=== PATIENT | male | born 1960 | race Caucasian/White ===

== ENCOUNTER 2022-03-03 11:48 | Outpatient (CLI) | payer OTHER ==
--- NOTE | 2022-03-03 14:58 | Ultrasound Report ---
PROCEDURE: Bladder ultrasound INDICATIONS: Increased urinary frequency TECHNIQUE: Real-time scanning was performed of the urinary bladder with image documentation. COMPARISON: None FINDINGS: Bladder: Prevoid urinary bladder volume is 546 L. After voiding the urinary bladder has an approximat e volume of 250 mL. The prostate is enlarged measuring approximately 6.0 x 4.2 x 4.7 cm. There is no urinary bladder wall thickening or obvious trabeculation. No bladder mass. IMPRESSION: [id number] prostate enlargement. Postvoid residual of 250 mL. No bladder wall thickening or bladder mass. Reviewed by: Anjel Espinoza MD on 03/03/2022 2:57 PM PDT Approved by: Anjel Espinoza MD on 03/03/2022 2:57 PM PDT Station ID: [id number]
== END 2022-03-03 11:49 | disposition home or self-care (01) ==
LOC: DI 11:48
PROVIDERS: ATTEND Internal Medicine
DX: R39.9 Unspecified symptoms and signs involving the genitourinary system (principal); N40.1 Benign prostatic hyperplasia with lower urinary tract symptoms

== ENCOUNTER 2023-10-12 11:54 | Outpatient (CLI) | payer OTHER ==
[~2023-10-12 11:54] MED LIST: GADOTERATE MEGLUMINE 10 MMOL/20 ML VIAL ONE
[2023-10-12 12:50] LABS: CREATININE 0.8 mg/dL (0.6-1.3)
--- NOTE | 2023-10-12 16:01 | MRI Report ---
PROCEDURE: PELVIS W/WO INDICATIONS: ELEVATED PSA CONTRAST: clariscan 14ml TECHNIQUE: Coronal ultra fast SE, axial T1 FSE with fat saturation, 3-plane nonbreath-hold T2 FSE. After the ad ministration of contrast, dynamic axial, delayed axial and coronal ultra fast GE or 2-D spoiled GE wi th fat saturation through the pelvis. Optional diffusion weighted imaging and ADC may be performed. COMPARISON: None. FINDINGS: Image quality: Diffusion weighted and dynamic contrast enhanced images are diagnostic. Prostate: Gland size is 6.4 x 5 x 4.4 cm; ellipsoid gland volume is 73 mL. Transitional zone heterogenous nodules are present, either well encapsulated or mostly encapsulated, compatible with PI-RADS 1 or 2 likely BPH nodules. The peripheral zone is compressed by the BPH. In the anterior mid gland right transitional zone, there is a small region of moderate T2 hypointensi ty measuring 0.8 x 1 x 0.7 cm. T2 score 3. (5/17, 7/10). DCE positive. DWI score 4. Pi RADS 3. No evidence of extracapsular disease or seminal vesicle involvement. Genitourinary system: Mildly trabeculated bladder likely from chronic obstruction. Bowel and peritoneum: No bowel obstruction or pathologic ascites. Nodes and vessels: No pathologic lymph nodes by size or morphologic characteristics. No aneurysmal v essel in the [id number]. Soft tissues: Small right inguinal hernia containing fat. Bones: Degenerative changes, no acute or suspicious osseous finding. IMPRESSION: PI RADS 3 lesion in the anterior mid gland right transitional zone. Differential includes an atypical BPH nodule. Prostatomegaly and sequela of BPH. If intervention is not pursued, consider continued PSA and possible imaging surveillance. Other findings as above. Reviewed by: J Luis Fitzpatrick MD on 10/12/2023 3:59 PM PST Approved by: J Luis Fitzpatrick MD on 10/12/2023 3:59 PM PST Station ID: [id number]
[2023-10-12] MEDS ORDERED: GADOTERATE MEGLUMINE 10 MMOL/20 ML VIAL IVP ONE (18:38)
== END 2023-10-12 11:55 | disposition home or self-care (01) ==
LOC: LAB 11:54
PROVIDERS: ATTEND Urology
DX: R97.20 Elevated prostate specific antigen [PSA] (principal); R93.89 Abnormal findings on diagnostic imaging of other specified body structures; N40.0 Benign prostatic hyperplasia without lower urinary tract symptoms; K40.90 Unilateral inguinal hernia, without obstruction or gangrene, not specified as recurrent
CPT/HCPCS: 36415; 72197; 82565; A9575